=== PATIENT | female | born 1960 | race Caucasian/White ===

== ENCOUNTER 2021-09-28 19:19 | Day surgery (SDCO) | payer OTHER ==
[~2021-09-28] VITALS: Ht 162.6 cm; Wt 119.3 kg
[2021-09-28 20:12] LABS: BASOPHIL 0.5 % (0-2); EOSINOPHIL 1.2 % (0-5); HCT 43.7 % (37.0-47.0); HGB 14.8 g/dl (12.5-16.0); LYMPHOCYTE 30.1 % (15-48); MCH 30.3 pg (25.0-31.0); MCHC 33.9 g/dL (32.0-36.0); MCV 89.5 fL (78.0-100.0); MONOCYTE 5.6 % (0-12); MPV 8.9 fL (6.0-9.5); NEUTROPHIL 62.4 % (41-80); NRBC 0; PLT 343 K/uL (150-400); RBC 4.88 M/uL (4.20-5.40); RDW 13.3 % (11.5-14.0); WBC 10.3 K/uL (4.0-10.5)
[2021-09-28 20:32] LABS: INR 0.98 (0.9-1.2); PROTHROMBIN TIME 12.7 SECONDS (11.9-13.9); PTT 28.5 SECONDS (24.9-34.6)
[2021-09-28 20:42] LABS: ALBUMIN 3.8 g/dL (3.4-5.0); BILIRUBIN - TOTAL 0.5 mg/dL (0.2-1.0); BUN/CREAT RATIO (CALC) 19.5 RATIO; CREATININE 0.77 mg/dL (0.51-0.95); FT4 (FREE T4) 1.2 ng/dL (0.76-1.46); GLOBULIN (CALCULATION) 3.3 g/dL; MAGNESIUM 1.8 mg/dL (1.8-2.4); POTASSIUM 3.1 mmol/L (3.5-5.1); TOTAL PROTEIN 7.1 g/dL (6.4-8.2)
[2021-09-28 21:05] LABS: CORONAVIRUS 2019 SARS-COV-2 NEGATIVE (NEGATIVE); INFLUENZA A NAA NEGATIVE (NEGATIVE)
[2021-09-29] MEDS ORDERED: LEXAPRO 10MG TA10 MG PO (01:49)
[2021-09-29] MEDS ORDERED: LEVOTHYROXINE137 MC1 PO (01:50)
[2021-09-29] MEDS ORDERED: LIPITOR20 MG PO ×2 (01:51→09:36)
[2021-09-29] MEDS ORDERED: HCTZ25 MG PO (01:52)
[2021-09-29 07:09] LABS: BUN/CREAT RATIO (CALC) 29.4 RATIO; CREATININE 0.68 mg/dL (0.51-0.95); POTASSIUM 3.6 mmol/L (3.5-5.1)
[2021-09-29] MEDS ORDERED: LOPRESSOR25 MG PO (09:36)
[2021-09-29] MEDS ORDERED: ASPIRIN EC81 MG PO (09:36)
[2021-09-29] MEDS ORDERED: METFORMIN HCL500 MG PO (09:36)
== END 2021-09-29 11:22 | disposition home or self-care (01) ==
LOC: FER 19:19 → FMS 09-29 00:15
PROVIDERS: Internal Medicine; Nurse Practitioner Acute Care; ADMIT Internal Medicine
DX: I47.1 Supraventricular tachycardia (principal); E11.65 Type 2 diabetes mellitus with hyperglycemia; E66.01 Morbid (severe) obesity due to excess calories; I10 Essential (primary) hypertension; E03.8 Other specified hypothyroidism; R60.0 Localized edema; R77.8 Other specified abnormalities of plasma proteins; E78.5 Hyperlipidemia, unspecified; E87.6 Hypokalemia; G47.33 Obstructive sleep apnea (adult) (pediatric); Z86.16 Personal history of COVID-19; Z20.822 Contact with and (suspected) exposure to COVID-19
CPT/HCPCS: 36415; 71045; 80048; 80053; 83036; 83735; 83880; 84145; 84439; 84443; 84484; 85025; 85610; 85730; 93005; 93971; G0378; J1650; J3475; J7040; U0002